=== PATIENT | female | born 1960 | race Caucasian/White ===

== ENCOUNTER 2025-08-24 09:10 | Emergency (ER) | payer BC, MEDICARE ==
[~2025-08-24] VITALS: Ht 152.4 cm; Wt 49.0 kg
[2025-08-24 09:21] VITALS: TEMP 37.2
[2025-08-24] MEDS ORDERED: DEXAMETHASONE 2MG TABLET PO ONE (10:00)
[2025-08-24] MEDS: IPRATROPIUM BROMIDE (0.02%) 0.5MG/2.5ML NEB HHN SCH (10:19)
[2025-08-24 10:21] VITALS: PULSE 82; RESP 20; O2SAT 99
[2025-08-24] MEDS: ALBUTEROL (0.083%) 2.5MG/3ML NEB HHN SCH (10:21)
[2025-08-24] MEDS: DEXAMETHASONE 4MG TABLET PO NR (10:55)
[2025-08-24] MEDS ORDERED: ALBU05 NEB (11:34)
[2025-08-24] MEDS ORDERED: BENZ100C86 MT (11:34)
[2025-08-24] MEDS ORDERED: ALBU90AE INH (11:34)
[2025-08-24 11:54] VITALS: BP 148/87; PULSE 79; RESP 16; O2SAT 97
== END 2025-08-24 11:55 | disposition home or self-care (01) ==
LOC: ER 09:10
DX: R07.9 Chest pain, unspecified (principal); J45.901 Unspecified asthma with (acute) exacerbation; Z88.5 Allergy status to narcotic agent; Z98.890 Other specified postprocedural states
CPT/HCPCS: 71045; 94644; 99291; J8540; Z7610; 94070; 94640; 94664; 98960